=== PATIENT | female | born 1970 | race Caucasian/White ===

== ENCOUNTER 2021-06-27 22:12 | Emergency (ER) | payer MEDICARE, MEDICAID ==
--- NOTE | 2021-06-27 23:28 | EDM.PDOC ---
ED HPI GENERAL MEDICAL PROBLEM - General Chief Complaint: Gastrointestinal Problem Stated Complaint: POSS INFECTION Time Seen by Provider: 06/27/21 23:05 Source of Information: Reports: Patient. Denies: Old Records History Limitations: Reports: Other (no old records) - History of Present Illness INITIAL COMMENTS - FREE TEXT/NARRATIVE: 51 yo female from [place] is here visiting her boyfriend and decided tonight she should come to our ER. She reports dark, loose stools for 7 days, sleeping one of the last 7 days for a full 24 hrs., flank pain, nausea without vomiting, but no abdominal pain. She has not been to any medical providers during this 7 days. She has a pHx of [place] gastric bypass. Has no pHx of GI bleeding. Has not had a fever, but thinks she might be septic. Didn't go to [facility], because she has a law suit filed against them. Didn't go to a primary care provider because her brother told her to find one that treats you like family and she hasn't found one she gets along with yet. Records requested and received from [facility] show a pHx of also anxiety, chronic HIDALGO's, hx of hysterectomy, chronic back pain, GERD, pHx of hepatitis, UTI's depression, ADD, central sleep apnea, traumatic brain injury, previous suicide attempt, fibromyalgia, RSD, appendectomy, cervical fusion, , hysterectomy, and T&A. Hx provided by patient is very rambling and seemingly exaggerated. Labs from 05/14/21 at [facility] show an H/H of 10.8/34.1 Onset: Gradual Onset Date: 06/20/21 Duration: Week(s): (1), Getting Worse Location: Reports: Other (flank pain and dark stools) Quality: Reports: Ache (in flanks) Severity: Mild Improves with: Reports: None Worsens with: Reports: Other (? time) Context: Reports: Other (See HPI) Associated Symptoms: Reports: Nausea/Vomiting (no vomiting) Treatments BAR TURNER: Reports: Other (see below) (none) Lower back pain Pain Score (Numeric/FACES): 8 - Related Data Allergies Allergy/AdvReac Type Severity Reaction Status Date / Time Penicillins Allergy Anaphylactic Verified 06/27/21 22:24 Shock pregabalin [From Lyrica] Allergy Weakness Verified 06/27/21 22:24 prochlorperazine Allergy Anaphylactic Verified 06/27/21 22:24 [From Compazine] Shock promethazine [From Phenergan] Allergy Cannot Verified 06/27/21 22:24 Remember Past Medical History Cardiovascular History: Reports: Cardiomyopathy, Syncope Respiratory History: Reports: Asthma, COPD, Intubation, Previous, Pneumonia, Recurrent, Sleep Apnea, Other (See Below) Other Respiratory History: hx ARDS, does not uses CPAP Gastrointestinal History: Reports: Cirrhosis, Gastritis, GERD, Pancreatitis Other Gastrointestinal History: states hx damage to esophagus due to drinking poison. 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: Musculoskeletal History: Reports: Back Pain, Chronic, Fracture, Fibromyalgia, Neck Pain, Chronic Other Musculoskeletal History: hx fx L foot, L wrist, hx CRPS L hand Neurological History: Reports: Brain Injury, Migraines, Neuropathy, Peripheral Psychiatric History: Reports: Anxiety, Depression, Psych Hospitalization(s), Suicide Attempt Hematologic History: Reports: Anemia, Blood Transfusion(s), Iron Deficiency - Infectious Disease History Infectious Disease History: Reports: Chicken Pox, Measles, Novel Coronavirus - Past Surgical History Head Surgeries/Procedures: Reports: None HEENT Surgical History: Reports: Adenoidectomy, LASIK, Myringotomy w Tube(s), Oral Surgery, Tonsillectomy Other HEENT Surgeries/Procedures: bilat tubes in ears, Respiratory Surgical History: Reports: Thoracentesis GI Surgical History: Reports: Appendectomy, Bariatric Procedure, Cholecystectomy, Colonoscopy, EGD, Hernia Repair/Other, Other (See Below) Female Surgical History: Reports: Section, Hysterectomy, Kidney stone extraction, Lithotripsy/ESWL, Ureteral Stent Other Female Surgeries/Procedures: CS x 2 Neurological Surgical History: Reports: Spinal Fusion Musculoskeletal Surgical History: Reports: None Oncologic Surgical History: Reports: Lumpectomy Social & Family History - Family History Family Medical History: No Pertinent Family History - Tobacco Use Tobacco Use Status *Q: Current Every Day Tobacco User Years of Tobacco use: 26 Packs/Tins Daily: 0.1 - Caffeine Use Caffeine Use: Reports: Coffee, Energy Drinks, Soda - Recreational Drug Use Recreational Drug Use: Yes Recreational Drug Type: Reports: Marijuana/Hashish Other Recreational Drug Type: uses CBD daily Recreational Drug Use Frequency: Daily ED ROS GENERAL - Review of Systems Review Of Systems: See Below Constitutional: Reports: No Symptoms HEENT: Reports: Other (tongue is reportedly sore) Respiratory: Reports: No Symptoms Cardiovascular: Reports: No Symptoms Endocrine: Reports: No Symptoms GI/Abdominal: Reports: Black Stool, Diarrhea, Melena, Nausea. Denies: Abdominal Pain, Constipation, Distension, Hematemesis, Hematochezia, Vomiting : Reports: Flank Pain. Denies: Dysuria Musculoskeletal: Reports: No Symptoms Skin: Reports: No Symptoms Neurological: Reports: No Symptoms Psychiatric: Reports: Other (sleeping more than normal for her) ED EXAM, GI/ABD - Physical Exam Exam: See Below Exam Limited By: No Limitations General Appearance: Alert, WD/WN, No Apparent Distress Eyes: Bilateral: Normal Appearance Ears: Normal External Exam, Normal Canal, Hearing Grossly Normal Nose: Normal Inspection, No Blood Throat/Mouth: Normal Inspection, Normal Lips, Normal Oropharynx, Normal Voice, No Airway Compromise Head: Atraumatic, Normocephalic Neck: Normal Inspection Respiratory/Chest: No Respiratory Distress, Lungs Clear, Normal Breath Sounds, No Accessory Muscle Use Cardiovascular: Regular Rate, Rhythm, No Edema GI/Abdominal Exam: Normal Bowel Sounds, Soft, Non-Tender, No Distention. No: Distended Extremities: Normal Inspection, Normal Range of Motion, Non-Tender, No Pedal Edema Neurological: Alert, Oriented, CN II-XII Intact, Normal Cognition, Normal Gait Psychiatric: Normal Affect, Normal Mood Skin Exam: Warm, Dry, Intact, Normal Color, No Rash Course - Vital Signs Last Recorded V/S: Last Vital Signs Temp 36.7 C 06/27/21 22:12 Pulse 100 06/27/21 22:12 Resp 18 06/27/21 22:12 BP 134/85 06/27/21 22:12 Pulse Ox 100 06/27/21 22:12 - Orders/Labs/Meds Orders: Active Orders 24 hr Category Date Time Status Orthostatic Vital Signs [RC] ASDIRECTED Care 06/27/21 23:16 Active Loperamide [Imodium] Med 06/28/21 00:31 Once 2 mg PO ONETIME ONE Labs: Laboratory Tests 06/27/21 06/27/2106/27/21 Range/Units 22:30 22:30 22:55 WBC 8.4 (3.0-10.3) x10-3/uL RBC 4.44 (3.60-5.20) x10(6)uL Hgb 10.5 L (11.4-15.5) g/dL Hct 33.8 L (34.2-48.2) % MCV 76.0 L (76.7-100.5) fL MCH 23.6 L (23.9-33.9) pg MCHC 31.0 L (31.9-34.8) g/dL RDW 17.7 H (12.3-16.5) % Plt Count 415 (151-488) x10(3)uL Sodium 141 (135-145) mmol/L Potassium 4.2 (3.5-5.3) mmol/L Chloride 104 (100-110) mmol/L Carbon Dioxide 33 H (21-32) mmol/L BUN 15 (7-18) mg/dL Creatinine 1.3 H (0.55-1.02) mg/dL Est Cr Clr Drug Dosing 44.80 mL/min Estimated GFR (MDRD) 43 L (>60) BUN/Creatinine Ratio 11.5 (9-20) Glucose 77 L (80-116) mg/dL Calcium 8.1 L (8.6-10.2) mg/dL Urine Color Yellow (YELLOW) Urine Appearance Clear (CLEAR) Urine pH 5.0 (5.0-6.5) Ur Specific Trevor 1.010 (1.010-1.025) Urine Protein Negative (NEGATIVE) mg/dL Urine Glucose (UA) Normal (NORMAL) mg/dL Urine Ketones Negative (NEGATIVE) mg/dL Urine Occult Blood Negative (NEGATIVE) Urine Nitrite Negative (NEGATIVE) Urine Bilirubin Negative (NEGATIVE) Urine Urobilinogen Normal (NEGATIVE) mg/dL Ur Leukocyte Esterase Small H (NEGATIVE) Urine RBC 0-5 (0-5) Urine WBC 5-10 H (0-5) Ur Squamous Epith Cells Few H (NS,R,O) Urine Bacteria Few H (NS) Urine Opiates Screen (NEGATIVE) Ur Buprenorphine Scrn (NEGATIVE) Ur Oxycodone Screen (NEGATIVE) Urine Methadone Screen (NEGATIVE) Ur Propoxyphene Screen (NEGATIVE) Ur Barbiturates Screen (NEGATIVE) Ur Tricyclics Screen (NEGATIVE) Ur Phencyclidine Scrn (NEGATIVE) Ur Amphetamine Screen (NEGATIVE) U Methamphetamines Scrn (NEGATIVE) U Benzodiazepines Scrn (NEGATIVE) U Cocaine Metab Screen (NEGATIVE) U Marijuana (THC) Screen (NEGATIVE) 06/27/21 Range/Units 22:55 WBC (3.0-10.3) x10-3/uL RBC (3.60-5.20) x10(6)uL Hgb (11.4-15.5) g/dL Hct (34.2-48.2) % MCV (76.7-100.5) fL MCH (23.9-33.9) pg MCHC (31.9-34.8) g/dL RDW (12.3-16.5) % Plt Count (151-488) x10(3)uL Sodium (135-145) mmol/L Potassium (3.5-5.3) mmol/L Chloride (100-110) mmol/L Carbon Dioxide (21-32) mmol/L BUN (7-18) mg/dL Creatinine (0.55-1.02) mg/dL Est Cr Clr Drug Dosing mL/min Estimated GFR (MDRD) (>60) BUN/Creatinine Ratio (9-20) Glucose (80-116) mg/dL Calcium (8.6-10.2) mg/dL Urine Color (YELLOW) Urine Appearance (CLEAR) Urine pH (5.0-6.5) Ur Specific Trevor (1.010-1.025) Urine Protein (NEGATIVE) mg/dL Urine Glucose (UA) (NORMAL) mg/dL Urine Ketones (NEGATIVE) mg/dL Urine Occult Blood (NEGATIVE) Urine Nitrite (NEGATIVE) Urine Bilirubin (NEGATIVE) Urine Urobilinogen (NEGATIVE) mg/dL Ur Leukocyte Esterase (NEGATIVE) Urine RBC (0-5) Urine WBC (0-5) Ur Squamous Epith Cells (NS,R,O) Urine Bacteria (NS) Urine Opiates Screen Negative (NEGATIVE) Ur Buprenorphine Scrn Negative (NEGATIVE) Ur Oxycodone Screen Negative (NEGATIVE) Urine Methadone Screen Negative (NEGATIVE) Ur Propoxyphene Screen Negative (NEGATIVE) Ur Barbiturates Screen Negative (NEGATIVE) Ur Tricyclics Screen Negative (NEGATIVE) Ur Phencyclidine Scrn Negative (NEGATIVE) Ur Amphetamine Screen Positive H (NEGATIVE) U Methamphetamines Scrn Negative (NEGATIVE) U Benzodiazepines Scrn Negative (NEGATIVE) U Cocaine Metab Screen Negative (NEGATIVE) U Marijuana (THC) Screen Positive H (NEGATIVE) Departure - Departure Time of Disposition: 00:35 Disposition: Home, Self-Care 01 Condition: Good Clinical Impression: Loose stools - Discharge Information *PRESCRIPTION DRUG MONITORING PROGRAM REVIEWED*: No *COPY OF PRESCRIPTION DRUG MONITORING REPORT IN PATIENT PAUL: No Referrals: PCP,None [Primary Care Provider] - Forms: ED Department Discharge Additional Instructions: Eat a serving of no sugar added yogurt once of twice daily. Take loperamide per package instructions for diarrhea control. Recheck in the clinic if symptoms persist. Sepsis Event Note (ED) - Evaluation Sepsis Screening Result: No Definite Risk - Focused Exam Vital Signs: Vital Signs Temp Pulse Resp BP Pulse Ox 06/27/21 22:12 36.7 C 100 18 134/85 100 - My Orders Last 24 Hours: My Active Orders 06/27/21 23:16 Orthostatic Vital Signs [RC] ASDIRECTED 06/28/21 00:31 Loperamide [Imodium] 2 mg PO ONETIME ONE - Assessment/Plan Last 24 Hours: My Active Orders 06/27/21 23:16 Orthostatic Vital Signs [RC] ASDIRECTED 06/28/21 00:31 Loperamide [Imodium] 2 mg PO ONETIME ONE
[2021-06-28] MEDS ORDERED: Loperamide 2 MG Cap PO ONE (00:31)
== END 2021-06-28 00:45 | disposition home or self-care (01) ==
LOC: FB.ED 22:12
DX: R19.7 Diarrhea, unspecified (principal); J44.9 Chronic obstructive pulmonary disease, unspecified; Z72.0 Tobacco use; Z86.16 Personal history of COVID-19; Z88.0 Allergy status to penicillin; Z88.8 Allergy status to other drugs, medicaments and biological substances; Z90.710 Acquired absence of both cervix and uterus; Z90.49 Acquired absence of other specified parts of digestive tract; Z90.89 Acquired absence of other organs; Z98.890 Other specified postprocedural states
CPT/HCPCS: 36415; 80048; 80307; 81001; 82272; 85027; 99284; A9270